=== PATIENT | female | born 1965 | race Two or more races ===

== ENCOUNTER 2018-02-12 23:40 | Emergency (ER) | payer SELFPAY ==
[2018-02-13] VITALS: RESP 18; O2SAT 97
--- NOTE | 2018-02-13 01:14 | ED PDOC ---
HPI: Psych/Substance Abuse Time Seen by Provider: 02/13/18 00:10 Chief Complaint (Nursing): Psychiatric Evaluation Chief Complaint (Provider): Psychiatric Evaluation History Per: Patient, EMS History/Exam Limitations: intoxication Onset/Duration Of Symptoms: Mins (prior to arrival) Current Symptoms Are (Timing): Still Present Additional Complaint(s): 52 year old female presents to the ED via EMS for a psychiatric evaluation. As per EMS, patient had an argument with her family at home and was aggressive, prompting her family to call the ambulance. As per patient, she is here because she is tired and intoxicated. When asked how much she had to drink, she said she "drank too much." Offers no complaints at this time. PMD: none provided Past Medical History Reviewed: Historical Data, Nursing Documentation, Vital Signs Vital Signs: Last Vital Signs Temp 97.7 F 02/12/18 23:58 Pulse 74 02/12/18 23:58 Resp 18 02/12/18 23:58 BP 100/62 02/13/18 00:22 Pulse Ox 97 02/12/18 23:58 - Medical History PMH: No Chronic Diseases - Surgical History Surgical History: Hernia Repair - Family History Family History: States: Unknown Family Hx - Living Arrangements Living Arrangements: With Family - Social History Current smoker - smoking cessation education provided: Yes (about 1 pack/day) Alcohol: Social Drugs: Cannabis - Allergies Allergies/Adverse Reactions: Allergies Allergy/AdvReac Type Severity Reaction Status Date / Time No Known Allergies Allergy Verified 02/12/18 23:58 Review of Systems ROS Statement: Except As Marked, All Systems Reviewed And Found Negative Constitutional: Positive for: Other (tired) Psych: Positive for: Other (intoxication) Physical Exam - Reviewed Nursing Documentation Reviewed: Yes Vital Signs Reviewed: Yes - Physical Exam Appears: Positive for: No Acute Distress Head Exam: Positive for: ATRAUMATIC, NORMOCEPHALIC Skin: Positive for: Normal Color Eye Exam: Positive for: Normal appearance ENT: Positive for: Normal ENT Inspection Neck: Positive for: Normal Cardiovascular/Chest: Positive for: Regular Rate, Rhythm Respiratory: Positive for: Normal Breath Sounds. Negative for: Respiratory Distress Gastrointestinal/Abdominal: Positive for: Normal Exam Extremity: Positive for: Normal ROM Neurologic/Psych: Positive for: Alert (and awake), Oriented - ECG O2 Sat by Pulse Oximetry: 97 (RA) Pulse Ox Interpretation: Normal Medical Decision Making Medical Decision Making: Time: 104 Initial Impression: psychiatric evaluation/ substance abuse Initial Plan: --Alcohol serum --Drug screen --Accucheck --Crisis evaluation pt resting in bed in NAD alcohol level elevated urine tox pos for [facility] 0325 Patient cleared by fiber optic assembly worker with diagnosis of alcohol use disorder as per Dr. Whittington. Scribe Attestation: Documented by Cely Matos acting as a scribe for Blayne Caba MD. Provider Scribe Attestation: All medical record entries made by the Scribe were at my direction and personally dictated by me. I have reviewed the chart and agree that the record accurately reflects my personal performance of the history, physical exam, medical decision making, and the department course for this patient. I have also personally directed, reviewed, and agree with the discharge instructions and disposition. Disposition - Clinical Impression Clinical Impression: Alcohol use disorder - Patient ED Disposition Is Patient to be Admitted: No Counseled Patient/Family Regarding: Studies Performed, Diagnosis, Need For Followup - Disposition Disposition: Routine/Home Disposition Time: 03:29 Condition: IMPROVED Additional Instructions: CONTACT THE ADDICTION SERVICES HOTLINE 18/09 follow up with your primary doctor in 1-2 days return to the ED with any worsening or concerning symptoms Instructions: Alcohol Use - When Is Drinking a Problem?, Effects of Alcohol on Your Health Forms: [employer] (Maori)
[2018-02-13 02:30] LABS: BARBITURATES, UR NEGATIVE (NEGATIVE); BENZODIAZEPINES, UR NEGATIVE (NEGATIVE); OPIATES, UR NEGATIVE (NEGATIVE); PHENCYCLIDINE, UR NEGATIVE (NEGATIVE)
[2018-02-13 06:49] VITALS: BP 113/81; PULSE 82; TEMP 98.3
== END 2018-02-13 06:17 | disposition home or self-care (01) ==
LOC: H.ER 23:40
DX: F10.129 Alcohol abuse with intoxication, unspecified (principal); F17.210 Nicotine dependence, cigarettes, uncomplicated
CPT/HCPCS: 82948; 99283; G0480